=== PATIENT | male | born 1960 | race Caucasian/White ===

== ENCOUNTER 2018-06-23 07:00 | Observation (INO) | payer BC ==
[~2018-06-23] VITALS: Ht 177.8 cm; Wt 86.4 kg
[2018-06-23 08:05] LABS: HEMATOCRIT 45.5 % (42.0-52.0); HEMOGLOBIN 15.3 g/dl (13.5-18.0); MEAN CELL VOLUME 90 fl (80.0-100.0); MEAN CORPUSCULAR HEMOGLOBIN 30 pg (27.0-31.0); MEAN CORPUSCULAR HGB CONC 34 g/dl (33.0-37.0); MEAN PLATELET VOLUME 9.8 fl (7.4-10.4); PLATELET COUNT 292 K/mm3 (130-400); RED BLOOD COUNT 5.07 M/mm3 (4.20-5.60); REDCELL DISTRIBUTION WIDTH-CV 15.1 % (11.5-14.5)
[2018-06-23 08:19] LABS: ALANINE AMINOTRANSFERASE 20 U/L (21-72); ALBUMIN 4.3 gm/dL (3.5-5.0); ALKALINE PHOSPHATASE 74 U/L (50-136); ANION GAP 10 mmol/L (7-16); AST,SGOT 58 U/L (15-37); BILIRUBIN,TOTAL 0.6 mg/dL (0.0-1.0); BLOOD UREA NITROGEN 16 mg/dL (9-20); CALCIUM 9.6 mg/dL (8.4-10.2); CARBON DIOXIDE 27 mmol/L (22-30); CHLORIDE 105 mmol/L (98-107); CREATININE, serum 0.99 (0.66-1.25); GLUCOSE 110 mg/dL (74-106); MAGNESIUM 2.1 mg/dL (1.6-2.3); POTASSIUM 4.2 mmol/L (3.4-5.0); PROTHROMBIN TIME 11.8 SECONDS (9.7-12.8); SODIUM 143 mmol/L (137-145)
[2018-06-23 08:21] LABS: PARTIAL THROMBOPLASTIN TIME 28.4 SECONDS (26.0-37.0)
[2018-06-23 08:23] LABS: BAND 1 % (0-10); LYMPHOCYTE 11 % (20.0-51.0); NEUTROPHILS 83 % (42.0-75.2); PLATELET ESTIMATE NORMAL (NORMAL)
[2018-06-23 08:33] LABS: TROPONIN-I < 0.012 ng/mL (0.000-0.035)
[2018-06-23 08:35] LABS: PROLACTIN 7.1 ng/mL (3.7-17.9)
[2018-06-23 10:30] VITALS: BP 129/91; PULSE 96
[2018-06-23 10:31] LABS: HEMATOCRIT 44.7 % (42.0-52.0); MEAN CELL VOLUME 90 fl (80.0-100.0); MEAN CORPUSCULAR HEMOGLOBIN 30 pg (27.0-31.0); MEAN CORPUSCULAR HGB CONC 34 g/dl (33.0-37.0); MEAN PLATELET VOLUME 9.7 fl (7.4-10.4); PLATELET COUNT 299 K/mm3 (130-400); RED BLOOD COUNT 4.98 M/mm3 (4.20-5.60); REDCELL DISTRIBUTION WIDTH-CV 15.2 % (11.5-14.5)
[2018-06-23 10:51] LABS: COLLECTION METHOD CLEAN CATCH
[2018-06-23 10:52] LABS: LYMPHOCYTE 19 % (20.0-51.0); NEUTROPHILS 71 % (42.0-75.2); PLATELET ESTIMATE NORMAL (NORMAL)
[2018-06-23 10:57] LABS: MUCOUS Present /lpf; PH 6 (5-8); SQUAMOUS EPITHELIAL 0-2 /hpf; URINE APPEARANCE Clear; URINE BACTERIA None Seen /hpf; URINE BILIRUBIN Negative (NEGATIVE); URINE BLOOD Negative (NEGATIVE); URINE COLOR Yellow; URINE GLUCOSE Negative (NEGATIVE); URINE KETONE 1+ (NEGATIVE); URINE LEUKOCYTE ESTERASE Negative (NEGATIVE); URINE NITRATE Negative (NEGATIVE); URINE PROTEIN(semi-quant) Negative (NEGATIVE); URINE RBC 0-2 /hpf; URINE UROBILINOGEN Negative (NEGATIVE)
[2018-06-23] MEDS ORDERED: ASPIRIN 81M81 MG/TA2 PO (13:55)
[2018-06-23] MEDS ORDERED: PRILOSEC 20MG20 MG PO (13:55)
[2018-06-23 14:59] LABS: TRICYCLIC ANTIDEPRESS URINE NEGATIVE
--- NOTE | 2018-06-23 15:29 | NUR ---
Dr Tran notified of consult.
[2018-06-23 15:40] VITALS: BP 119/73; PULSE 103; TEMP 98.7
[2018-06-23 15:41] VITALS: BP 112/77; PULSE 101
[2018-06-23 15:42] VITALS: BP 119/76; PULSE 105
--- NOTE | 2018-06-23 16:15 | NUR ---
Patient alert and oriented, answers questions appropriately. See assessment. Neuros intact, no weakness noted. Laceration to left eye with edges well approximated, no drainage noted. Area around left eye is with discoloration and edema. During interview with patient, as he was actively following and participating in conversation, he closed his eyes for a few moments and upon opening them stated he "had that same feeling that started in my chest and moved into my head". "I smell something different in the room now". Patient was unable to recall previous path of conversation prior to this, but was able to remember previous events. Patient then resumes conversation appropriately. 1700. Patient is asleep in bed, side rails are padded. Patients daughter states he had another episode as previous with closing his eyes and having a warm sensation from his chest to his head; however, he did not smell anything new or unusual at that time.
[2018-06-23 19:50] VITALS: BP 121/67; PULSE 100; TEMP 98.8
--- NOTE | 2018-06-23 20:40 | NUR ---
PT RESTING IN BED WITH FAMILY AT BEDSIDE. PT REPORTS HAVE ONE OF HIS EPISODES 10 MINS AGO WHILE LAYING IN BED. VSS. LEFT EYE IS BRUISED D/T FALL PREVIOUSLY. EDUCATION ON NEEDING TO CALL IF WALKING. PT REPORTS UNDERSTANDING. NO NEEDS AT THIS TIME. CALL LIGHT INREACH
[2018-06-24 00:25] VITALS: BP 105/58; PULSE 95; TEMP 98.5
--- NOTE | 2018-06-24 02:03 | NUR ---
PT REPORTS GENERALIZED PAIN- PRN TYLENOL ORDERED AND GIVEN. NEURO CHECKS INSIGNIFICANT. NO HOT/FLUSHED/LIGHTHEADED EPISODES REPROTED AT THIS TIME. NO NEEDS, CALL LIGHT INREACH
[2018-06-24 04:12] VITALS: BP 103/52; PULSE 84; TEMP 98.4
--- NOTE | 2018-06-24 05:15 | NUR ---
pt had an uneventful night. reported some "overall pain", prn tylenol releived pain. pt reports episode of a warm feeling from his chest to his head and light headedness during night. nuero checks insignificant. equal strength in arms and legs. IV to the right AC- no redness, no swelling. no needs at this time. call light inreach . pt npo. scd on
[2018-06-24 06:54] LABS: HEMATOCRIT 44.5 % (42.0-52.0); HEMOGLOBIN 14.9 g/dl (13.5-18.0); MEAN CELL VOLUME 91 fl (80.0-100.0); MEAN CORPUSCULAR HEMOGLOBIN 30 pg (27.0-31.0); MEAN CORPUSCULAR HGB CONC 34 g/dl (33.0-37.0); MEAN PLATELET VOLUME 10.4 fl (7.4-10.4); PLATELET COUNT 297 K/mm3 (130-400); RED BLOOD COUNT 4.91 M/mm3 (4.20-5.60); REDCELL DISTRIBUTION WIDTH-CV 15.6 % (11.5-14.5)
[2018-06-24 07:08] LABS: CREATININE, serum 0.92 (0.66-1.25); POTASSIUM 3.9 mmol/L (3.4-5.0)
--- NOTE | 2018-06-24 07:30 | NUR ---
Received report from Purnima ABBOTT. Pt alert and oriented in room. Pt is wanting to refuse his MYRIAM here and have it done outpatient back in [place]. Pt did agree to having the EEG done as they were coming in at 8am to complete it. Will follow up with Dr. Moran.
--- NOTE | 2018-06-24 07:37 | NUR ---
report given to MILENA Drake. no needs at this time
[2018-06-24 07:38] LABS: BAND 2 % (0-10); EOSINOPHIL 2 % (0-4); LYMPHOCYTE 36 % (20.0-51.0); NEUTROPHILS 47 % (42.0-75.2); PLATELET ESTIMATE NORMAL (NORMAL)
[2018-06-24 07:46] VITALS: BP 125/76; PULSE 95; TEMP 98.5
--- NOTE | 2018-06-24 08:45 | NUR ---
Pt lying in bed, EEG being completed.
--- NOTE | 2018-06-24 09:54 | NUR ---
SW attended clinical rounds. Patient reports he wants to go home. Patient is visiting from [place] because his daughter was graduating from [employer]. Patient lives independently and does not use any DME or home health. Patient's PCP and regular pharmacy are in [place]. Patient also has a cargiologist back home as well. SW does not anticipate any discharge needs.
[2018-06-24] MEDS ORDERED: ELIQUIS 5MG PO (09:55)
[2018-06-24] MEDS ORDERED: KEPPRA 500MG500 MG PO (09:57)
--- NOTE | 2018-06-24 11:14 | NUR ---
All discharge paperwork given, questions asked and answered. Prescriptions given, directions taught. Disc given to pt. IV to RAC removed, catheter tip intact, no redness or swelling noted. Pt escorted to elevators by [facility] staff.
--- NOTE | 2018-06-24 12:15 | NUR ---
Initial visit; Patient and daughter thanked [facility] Nurse for looking in on him and wishing him well and God's blessings.
== END 2018-06-24 11:16 | disposition home or self-care (01) ==
LOC: COL.ER 07:00 → MEDICAL 12:39
PROVIDERS: Emergency Medicine; Nurse Practitioner Family; ADMIT Hospitalist
DX: S01.512A Laceration without foreign body of oral cavity, initial encounter (principal); S01.112A Laceration without foreign body of left eyelid and periocular area, initial encounter; S01.91XA Laceration without foreign body of unspecified part of head, initial encounter; D72.829 Elevated white blood cell count, unspecified; R41.0 Disorientation, unspecified; Z95.0 Presence of cardiac pacemaker; R00.1 Bradycardia, unspecified; I34.0 Nonrheumatic mitral (valve) insufficiency; Z95.3 Presence of xenogenic heart valve; M54.9 Dorsalgia, unspecified; W19.XXXA Unspecified fall, initial encounter; Y92.59 Other trade areas as the place of occurrence of the external cause; J32.0 Chronic maxillary sinusitis; J32.2 Chronic ethmoidal sinusitis; J32.3 Chronic sphenoidal sinusitis; Z85.71 Personal history of Hodgkin lymphoma; Z92.3 Personal history of irradiation; Z90.81 Acquired absence of spleen; K21.9 Gastro-esophageal reflux disease without esophagitis; Z79.899 Other long term (current) drug therapy; Z79.01 Long term (current) use of anticoagulants; Z79.82 Long term (current) use of aspirin; Z85.828 Personal history of other malignant neoplasm of skin
CPT/HCPCS: G0378; J1650; J2405; J7030; Q9967